=== PATIENT | female | born 1970 | race Caucasian/White ===

== ENCOUNTER 2022-02-20 00:48 | Day surgery (SDC) | payer BC, SELFPAY ==
[2022-01-16 14:07] VITALS: BMI 20.5
--- NOTE | 2022-01-16 14:16 | SUR.PREOP ---
Patient aware of magnesium citrate recall and instructed not to take it. Patient voices understanding.
--- NOTE | 2022-02-10 13:34 | PC.NURSE ---
Patient states no changes in health history or medications. Updated on arrival time and instructions.
[2022-02-20 10:12] VITALS: BP 106/69; PULSE 87; RESP 16; TEMP 36.6; O2SAT 99
[2022-02-20] MEDS: LACTATED RINGERS 1,000 ML 150 ML IV CONT (10:27)
--- NOTE | 2022-02-20 10:40 | P.PNAN_ITS ---
Anes - Initial Pre Proc Eval Procedure: Operation Date: 02/20/22 10:30 Proposed Procedures p Screening Colonoscopy - Carl Cash MD Date/Time: 02/20/22 10:40 Surgeon: Carl Cash MD Pre Op Diagnosis: hx of colon polyps Patient Data Age: 51 Gender: F Height: 1.78 m Weight: 76.4 kg Last Vital Signs Temp 97.9 F 02/20/22 10:12 Pulse 87 02/20/22 10:12 Resp 16 02/20/22 10:12 BP 106/69 02/20/22 10:12 Pulse Ox 99 02/20/22 10:12 O2 Del Method Room Air 02/20/22 10:12 Allergies Allergy/AdvReac Type Severity Reaction Status Date / Time No Known Allergies Allergy Verified 02/20/22 10:11 Home Medications Medication Instructions Recorded Confirmed Type citalopram 10 mg tablet 10 mg PO DAILY 01/16/22 01/16/22 History levothyroxine 88 mcg tablet 88 mcg PO DAILY 01/16/22 01/16/22 History Patient hx anesthesia problems: none Family hx anesthesia problems: none Results Review: All pre-operative results and documents have been reviewed as part of the pre- operative evaluation. [facility] Social History Social History Smoking status: Former smoker Alcohol intake: never Living arrangements: with family Spiritual care concerns: No Anes - Eval Final PreProcedure Day of Procedure 02/20/22 10:40 Patient weight: normal Heart: regular rate and rhythm Lungs: clear to auscultation Airway: Mallampati scale class II Neurological: alert and oriented Last oral intake: >/= 8 hours ASA classification: II Emergent: no Anesthetic plan: proceed Anesthesia type and monitoring: general GIVS and standard monitoring Results Review: All pre-operative results and documents have been reviewed as part of the pre- operative evaluation. Informed Consent: The patient's anesthetic plan and its attendant risks and benefits were discussed with the patient/family/POA. Questions were solicited and answers provided to the satisfaction of the patient/family/POA.
--- NOTE | 2022-02-20 10:40 | PM.IMHP ---
H&P: HPI History of Present Illness Date/Time: 02/20/22 10:40 Chief Complaint: History of colon polyps. Narrative: This is a 51-year-old white female patient presents for screening colonoscopy she has a prior history of colon polyps. Family history is significant her mother has had multiple colon polyps. Patient presents today for screening exam. She reports that her current weight appetite bowel movements are normal. She denies abdominal pain. She has had no bleeding. Review of Systems Review of Systems: Review of systems noncontributory. [facility] Social History Social History Smoking status: Former smoker Alcohol intake: never Living arrangements: with family Spiritual care concerns: No Meds Home Medications and Allergies Home Medications Medication Instructions Recorded Confirmed Type citalopram 10 mg tablet 10 mg PO DAILY 01/16/22 01/16/22 History levothyroxine 88 mcg tablet 88 mcg PO DAILY 01/16/22 01/16/22 History Allergies Allergy/AdvReac Type Severity Reaction Status Date / Time No Known Allergies Allergy Verified 02/20/22 10:11 Vital Signs Vital Signs - 24 hr 02/20/22 10:12 Temperature 97.9 F Pulse Rate 87 Respiratory Rate 16 Blood Pressure 106/69 Pulse Oximetry 99 Oxygen Delivery Room Air Exam Narrative: Physical exam reveals patient be alert. Vital signs stable. HEENT exam is unremarkable. Patient is anicteric. Lungs are clear to auscultation and percussion. Heart is without murmur or extra sounds. Abdominal exam bowel sounds are present soft nontender with no hepatosplenomegaly. Digital external rectal exam is normal. Assessment and Plan Assessment and plan (1) History of colon polyps: Code(s): Z86.010 - Personal history of colonic polyps Status: Acute Assessment and Plan: Patient has a prior history of colon polyps for this reason colonoscopy suggested every 5 years. (2) Family history of colonic polyps: Code(s): Z83.71 - Family history of colonic polyps Status: Acute Assessment and Plan: Patient's mother has had colon polyps. Screening colonoscopy advised at 5 year intervals.
[2022-02-20 11:14] VITALS: BP 95/45; PULSE 73; RESP 20; O2SAT 98
[2022-02-20 11:24] VITALS: BP 101/40; PULSE 69; RESP 19; O2SAT 100
[2022-02-20 11:34] VITALS: BP 95/51; PULSE 68; RESP 16; O2SAT 100
== END 2022-02-20 11:53 | disposition home or self-care (01) ==
PROVIDERS: PCP Family Medicine; Visit Provider Internal Medicine Gastroenterology
PROC: 0DJD8ZZ Inspection of Lower Intestinal Tract, Via Natural or Artificial Opening Endoscopic (ICD-10-PCS; CPT 45378; principal; 2022-02-20 10:30)
DX: Z12.11 Encounter for screening for malignant neoplasm of colon (principal); Z83.71 Family history of colonic polyps; K64.8 Other hemorrhoids; E03.9 Hypothyroidism, unspecified; Z86.010 Personal history of colon polyps; Z87.891 Personal history of nicotine dependence
CPT/HCPCS: 45378; J2704; J7120

== ENCOUNTER → 2022-03-05 09:13 | Outpatient (CLI) | payer BC, SELFPAY ==
--- NOTE | ~2022-03-05 | MMUS_ITS ---
EXAMINATION: MM diag angel implant RT w mark anthony, US breast RT complete HISTORY: Reported outside abnormal mammogram in July 2021 TECHNIQUE: ML, MLO and CC implant displaced 3-D tomosynthesis images of both breasts were performed a nd synthetic 2-D images were generated. Implant ML, MLO and CC views of both breasts. CAD analysis wa s submitted and interpreted. High resolution complete right breast ultrasound including all 4 quadran ts and subareolar area was performed. COMPARISON: 07/24/2021 and bilateral screening mammogram BREAST PARENCHYMAL COMPOSITION: There are scattered areas of fibroglandular density. FINDINGS: MAMMOGRAPHIC FINDINGS: Status post right augmentation mammoplasty. No suspicious mass, architectural distortion, malignant calcification, skin thickening or retraction is detected. ULTRASOUND: 12:00 1 cm from nipple: 3 mm sonolucency consistent with small cyst 12:00 1 cm from nipple: 2.5 x 5.3 mm simple cyst 8:00 0.5 cm from nipple: 1.5 x 3.4 mm cyst 11:00 5 cm from nipple: 2.5 mm cyst 11:00 5 cm from nipple: 2.5 mm cyst 1:00 4 cm from nipple: 2.2 mm cyst No suspicious mass or shadowing is detected. IMPRESSION: 1. Benign findings 2. Routine annual mammographic screening is recommended BI-RADS Category 2: Benign finding(s). Reviewed, dictated and finalized at location A. IMPRESSION: 1. Benign findings 2. Routine annual mammographic screening is recommended BI-RADS Category 2: Benign finding(s).
== END ==
PROVIDERS: PCP Family Medicine; Visit Provider Family Medicine
DX: R92.8 Other abnormal and inconclusive findings on diagnostic imaging of breast (principal)
CPT/HCPCS: 76641; 77061; 77065; G0279